=== PATIENT | female | born 1960 | race Caucasian/White ===

== ENCOUNTER 2017-07-18 12:02 | Emergency (ER) | payer BC ==
[~2017-07-18] VITALS: Ht 162.6 cm; Wt 70.3 kg
[2017-07-18] MEDS ORDERED: TOBREX5 ML OPHTHALMIC (13:03)
[2017-07-18] MEDS ORDERED: MOXIFLOXACIN3 ML OPHTHALMIC (13:22)
[2017-07-18 13:32] VITALS: BP 105/61
== END 2017-07-18 13:33 | disposition home or self-care (01) ==
LOC: ER 12:02
DX: H10.31 Unspecified acute conjunctivitis, right eye (principal); H57.8 Other specified disorders of eye and adnexa; H40.9 Unspecified glaucoma; F10.99 Alcohol use, unspecified with unspecified alcohol-induced disorder; Z88.1 Allergy status to other antibiotic agents; Z88.8 Allergy status to other drugs, medicaments and biological substances; Z91.018 Allergy to other foods

== ENCOUNTER 2021-05-14 18:42 | Emergency (ER) | payer BC, OTHER ==
[~2021-05-14] VITALS: Ht 162.6 cm; Wt 70.3 kg
--- NOTE | ~2021-05-14 | EMS ---
[address] [address] EMS Patient Care Report Name: BALBIR FOFANA Room #: DEP BRAYDEN Cooper#: [id number] Admission: 05/14/21 Attend Phys: Discharge: 05/14/21 Date of : 62 Report #: [id number] THIS REPORT FOR: //name// Report Transmitted: 05/14/2021 19:27 EMS Care Summary [place], [place]/[facility] Incident [id number] @ 05/14/2021 18:13 Incident Location [address] [place] [address] Patient BALBIR ALMEIDA Female, 60 Years 1960 Patient Address Patient History Hypothyroidism, Patient Allergies Erythromycin,Bee sting allergy, Patient Medications Synthroid, Diltiazem, Epinephrine Auto-injector, Chief Complaint BEE STING Disposition Transported No Lights/[place] Reason Allergic Reaction/Stings Transported To [facility] Narrative RESPONDED TO ALLERGIC REACTION AT CLINIC. UPON ARRIVAL PT FOUND LAYING IN BED ALERT AND ORIENTED. PT REPORTS SHE GOT STUNG BY A BEE ON HER HAND AND DROVE HERSELF TO THE CLINIC BECAUSE HER EPI PENS WERE . PT IS NOT IN DISTRESS CURRENTLY. PT HAD MODERATE SWELLING TO THE HAND BUT NOT OTHER COMPLAINTS. PT PIVOTS TO COT AND SEATBELTS APPLIED. PT VITALS, 3 LEAD AND IV OBTAINED. PT TRANSPORTED TO [facility] WITH NO CHANGES. PT SCOOTED TO BED AND HANDRAILS UP. [address] [place] [address] EMS Patient Care Report Name: BALBIR FOFANA Room #: DEP Kenneth#: [id number] Admission: 05/14/21 Attend Phys: Discharge: 05/14/21 Date of : 62 Report #: [id number] REPORT GIVEN TO NURSE. Initial Vitals @18:37P: 98,R: 16,BP: 160/86, @18:37P: 100,R: 18,BP: 140/86,Pain: 2/10,GCS: 15,Glucose: 85,SpO2: 98,Revised Trauma: 12, Assessments @18:21MENTAL:Time Oriented,Place Oriented,Event Oriented,Person Oriented,SKIN:Other,HEENT:Head/Face: No Abnormalities,Eyes: No Abnormalities,Neck/Airway: No Abnormalities,LUNG SOUNDS:General: No Abnormalities,Left Upper: No Abnormalities,Right Upper: No Abnormalities,Left Lower: No Abnormalities,Right Lower: No Abnormalities,ABDOMEN:General: No Abnormalities,Left Upper: No Abnormalities,Right Upper: No Abnormalities,Left Lower: No Abnormalities,Right Lower: No Abnormalities,PELVIS//GI:No Abnormalities,EXTREMITIES:Left Arm: No Abnormalities,Right Arm: No Abnormalities,Left Leg: No Abnormalities,Right Leg: No Abnormalities,PULSE:Radial: 2+ Normal,NEURO:No Abnormalities, Impression Allergic Reaction Procedures @18:21ALS AssessmentResponse: UnchangedSucceeded@18:22Saline Lock 3cc (22 ga) Site: Hand-LeftResponse: UnchangedSucceeded@18:243-Lead ECGResponse: UnchangedSucceeded Timeline 18:11,Call Received 18:11,Dispatch Notified 18:13,Dispatched 18:13,En Route 18:19,On Scene 18:21,At Patient 18:21,ALS Assessment,Response: UnchangedSucceeded, 18:22,Saline Lock 3cc 22 ga Site: Hand-Left,Response: UnchangedSucceeded, 18:24,3-Lead ECG,Response: UnchangedSucceeded, 18:31,Depart Scene 18:37,BP: 140/86 M,PULSE: 100,RR: 18 R,SPO2: 98 Ox,ETCO2: ,B,PAIN: 2,GCS: 15, 18:37,BP: 160/86 M,PULSE: 98,RR: 16 R,SPO2: Ox,ETCO2: ,BG: ,PAIN: ,GCS: , 18:38,At Destination 18:55,Call Closed Disclaimer v1.1 Copyright 2020 [employer] [place] [address] EMS Patient Care Report Name: BALBIR FOFANA Room #: DEP BRAYDEN Cooper#: [id number] Admission: 05/14/21 Attend Phys: Discharge: 05/14/21 Date of : 62 Report #: [id number] This EMS Care Summary contains data elements from the applicable legal record (which may be displayed differently). It is designed to provide pertinent information for the following purposes: continuity of care, clinical quality, and state data reporting. The complete legal record is available to ED staff and administrators of the receiving hospital in [facility]'s Patient Tracker. All data is provided "as is."
[~2021-05-14 18:42] MED LIST: MOXIFLOXACIN3 ML OPHTHALMIC; TOBREX5 ML OPHTHALMIC
[2021-05-14] MEDS ORDERED: LISINOPRIL (18:48)
[2021-05-14] MEDS ORDERED: SYNTHROID100 MC1 PO (18:48)
[2021-05-14] MEDS ORDERED: DILTIAZEM (18:48)
[2021-05-14] MEDS ORDERED: PREDNISONE50 MG PO (19:33)
[2021-05-14 19:42] VITALS: BP 159/92
== END 2021-05-14 19:43 | disposition home or self-care (01) ==
LOC: ER 18:42
DX: T63.441A Toxic effect of venom of bees, accidental (unintentional), initial encounter (principal); M79.89 Other specified soft tissue disorders; M79.7 Fibromyalgia; Z79.899 Other long term (current) drug therapy; Z88.1 Allergy status to other antibiotic agents; Z91.030 Bee allergy status; Y92.89 Other specified places as the place of occurrence of the external cause

== ENCOUNTER 2021-06-20 17:18 | Emergency (ER) | payer BC, OTHER ==
[~2021-06-20] VITALS: Ht 162.6 cm; Wt 70.3 kg
[~2021-06-20 17:18] MED LIST changes: +DILTIAZEM; +LISINOPRIL; +PREDNISONE50 MG PO; +SYNTHROID100 MC1 PO
[2021-06-20] MEDS ORDERED: SAVELLA50 MG PO (17:43)
[2021-06-20] MEDS ORDERED: GYNODIOL0.5 MG PO (17:43)
[2021-06-20] MEDS ORDERED: FLEXERIL PO (18:32)
[2021-06-20] MEDS ORDERED: DILTIAZEM 24HR180 M1 PO (18:32)
[2021-06-20] MEDS ORDERED: OMEPRAZOLE 20 M20 M1 PO (18:32)
[2021-06-20] MEDS ORDERED: LISINOPRIL10 MG PO (18:32)
[2021-06-20] MEDS ORDERED: MEDROXYPROGEST2.5 MG PO (18:32)
[2021-06-20] MEDS ORDERED: SYNTHROID150 MCG PO (18:33)
[2021-06-20] MEDS ORDERED: PREDNISONE50 MG PO (19:52)
[2021-06-20] MEDS ORDERED: EPIPEN 2-P0.3 MG/0.3 IM (19:57)
[2021-06-20 19:59] VITALS: BP 133/85
== END 2021-06-20 20:07 | disposition home or self-care (01) ==
LOC: ER 17:18
DX: T63.451A Toxic effect of venom of hornets, accidental (unintentional), initial encounter (principal); T78.49XA Other allergy, initial encounter; L50.9 Urticaria, unspecified; M79.7 Fibromyalgia; Z79.899 Other long term (current) drug therapy; Z88.1 Allergy status to other antibiotic agents; Z91.030 Bee allergy status; Z88.8 Allergy status to other drugs, medicaments and biological substances; Z91.018 Allergy to other foods; Y92.89 Other specified places as the place of occurrence of the external cause